=== PATIENT | female | born 1950 | race Caucasian/White ===

== ENCOUNTER 2019-01-14 15:13 | Inpatient (IN) | payer OTHER, MEDICAID ==
[~2019-01-14] VITALS: Ht 162.6 cm; Wt 66.7 kg
[2019-01-14 12:00] VITALS: BP 144/76
[~2019-01-14 15:13] MED LIST: ANASPAZ0.125 MG; BENTYL 20 MG TA20 M1; BENTYL 20 MG TA20 M1 PO; EFFEXOR XR75 MG PO; FLEXERIL; OXCARBAZEPINE300 M1; PHENERGAN25 MG RE; RISPERDAL0.5 MG; ROBAXIN 750 MG750 M1; ROBAXIN 750 MG750 M1 PO; TOPROL XL50 MG PO; ZANTAC 150MG T150 M1
[2019-01-14 15:28] VITALS: BP 157/84
[2019-01-14] MEDS ORDERED: CRESTOR40 MG PO (15:44)
[2019-01-14] MEDS ORDERED: SERTRALINE HCL50 MG PO (15:45)
[2019-01-14] MEDS ORDERED: EFFEXOR XR75 MG PO (15:45)
[2019-01-14] MEDS ORDERED: HYDROCHLOROTH12.5 M1 PO (15:46)
[2019-01-14] MEDS ORDERED: MOBIC15 MG PO (15:46)
[2019-01-14] MEDS ORDERED: BENTYL 20 MG TA20 M1 PO (15:46)
[2019-01-14] MEDS ORDERED: TOPROL XL25 MG PO (15:46)
[2019-01-14] MEDS ORDERED: OXCARBAZEPINE300 MG PO (15:47)
[2019-01-14] MEDS ORDERED: OMEPRAZOLE 20 M20 M1 PO (15:47)
[2019-01-14] MEDS ORDERED: CHILDREN'S ASPI81 M1 PO (15:48)
[2019-01-14] MEDS ORDERED: CLONAZEPAM 0.50.5 M1 PO (15:48)
[2019-01-14 16:54] LABS: ABSOLUTE EOSINOPHILS 0.1 thou/uL (0.0-0.7); ABSOLUTE LYMPHOCYTES 1.1 thou/uL (0.8-5.3); ABSOLUTE MONOCYTES 0.6 thou/uL (0.0-1.2); ABSOLUTE NEUTROPHILS 3.4 thou/uL (1.6-8.1); BASOPHILS 0.6 %; EOSINOPHILS 2.3 %; HEMATOCRIT 37.3 % (37.0-47.0); HEMOGLOBIN 13.2 gm/dL (12.0-15.0); LYMPHOCYTES 21.4 %; MCH 34.6 pg (26.0-34.0); MCHC 35.3 g/dL (28.0-37.0); MCV 98.2 fL (80.0-100.0); MPV 8.4 fl. (7.2-11.1); NUCLEATED RBCS 0 /100WBC; PLATELET COUNT* 173 thou/uL (150-400); POLYS 63.7 %; RDW-CV 13.5 % (10.5-14.5); WBC 5.3 thou/uL (4.0-11.0)
[2019-01-14 17:05] LABS: ANION GAP 15 mmol/L (7-16); BUN 27 mg/dL (7-18); CALCIUM 9.7 mg/dL (8.5-10.1); CHLORIDE 100 mmol/L (98-107); CO2 23 mmol/L (21-32); CREATININE 0.9 mg/dL (0.6-1.3); GLUCOSE 103 mg/dL (70-99); POTASSIUM 3.3 mmol/L (3.5-5.1); SODIUM 138 mmol/L (136-145)
[2019-01-14 17:14] LABS: ALBUMIN 4.1 g/dL (3.4-5.0); ALKALINE PHOSPHATASE 146 U/L (46-116); SGOT 42 U/L (15-37); SGPT 53 U/L (30-65); TOTAL BILIRUBIN 0.3 mg/dL (<0.1-1.0); TOTAL PROTEIN 7.5 g/dL (6.4-8.2); TROPONIN-I LEVEL <0.06 ng/mL (<0.06)
[2019-01-14 17:17] LABS: APTT 26.6 Seconds (25.0-31.3); INR 1.1
--- NOTE | 2019-01-14 17:36 | NUR ---
ORTHO DOCTOR AT BEDSIDE TALKING WITH PT.
--- NOTE | 2019-01-14 18:57 | NUR ---
REPORT GIVEN TO JUAN MANUEL ACEVEDO. JUAN MANUEL ACEVEDO TO ASSUME PT CARE AT THIS TIME.
[2019-01-14 19:40] VITALS: BP 159/73
[2019-01-14 20:00] VITALS: BP 144/85
[2019-01-15 00:54] VITALS: BP 134/85
[2019-01-15 04:00] VITALS: BP 156/75
[2019-01-15 05:08] LABS: ABSOLUTE EOSINOPHILS 0.1 thou/uL (0.0-0.7); ABSOLUTE LYMPHOCYTES 1.4 thou/uL (0.8-5.3); ABSOLUTE MONOCYTES 0.5 thou/uL (0.0-1.2); ABSOLUTE NEUTROPHILS 2.4 thou/uL (1.6-8.1); BASOPHILS 0.7 %; EOSINOPHILS 2.2 %; HEMATOCRIT 37.2 % (37.0-47.0); HEMOGLOBIN 12.8 gm/dL (12.0-15.0); LYMPHOCYTES 32.6 %; MCH 34.9 pg (26.0-34.0); MCHC 34.5 g/dL (28.0-37.0); MCV 101.2 fL (80.0-100.0); MONOCYTES 10.2 %; MPV 8.8 fl. (7.2-11.1); NUCLEATED RBCS 0 /100WBC; PLATELET COUNT* 150 thou/uL (150-400); POLYS 54.3 %; RBC 3.67 mil/uL (4.20-5.00); RDW-CV 13.9 % (10.5-14.5); WBC 4.4 thou/uL (4.0-11.0)
--- NOTE | 2019-01-15 05:11 | NUR ---
RECEIVED REPORT FROM RAAD ZAMBRANO. PT TRANSFERRED TO 224. PT A&OX4. VSS. CYBER TRANSPORT SYSTEMS SPECIALIST IN PLACE. ADMISSION HISTORY & PHYSICAL ASSESSMENT COMPLETED AND CHARTED. PT ON RA. PT TRACING SR ON TELE. PT UPSTANDBY TO RESTROOM. PT COMPLAINED OF LEFT UPPER ARM PAIN-MEDS GIVEN PER MAR. PT WITH BRUISE/HEMATOMA ON LEFT UPPER ARM-PHOTOGRAPH TAKEN, COMPRESSION WRAP & ICE APPLIED. PT ABLE TO SLEEP WELL ON BED. FALL PRECAUTIONS IN PLACE. CALL LIGHT WITHIN REACH.
[2019-01-15 05:25] LABS: ANION GAP 12 mmol/L (7-16); BUN 24 mg/dL (7-18); CALCIUM 9.1 mg/dL (8.5-10.1); CHLORIDE 100 mmol/L (98-107); CHOLESTEROL 180 mg/dL (<200); CO2 23 mmol/L (21-32); CREATININE 0.8 mg/dL (0.6-1.3); GLUCOSE 116 mg/dL (70-99); HDL CHOLESTEROL 74 mg/dL (>40); LDL CHOLESTEROL 64 mg/dL (<100); PHOSPHORUS* 3.8 mg/dL (2.5-4.9); POTASSIUM 3.9 mmol/L (3.5-5.1); SODIUM 135 mmol/L (136-145); TC:HDL 2.4 Ratio (Not establshd); TRIGLYCERIDE 210 mg/dL (<150); VLDL 42 mg/dL (<40)
[2019-01-15 05:40] LABS: SERUM ASSESSMENT CLEAR
[2019-01-15 08:00] VITALS: BP 131/105
--- NOTE | 2019-01-15 12:33 | CON ---
[address] [address] CONSULTATION Name: OMARIENIO Felton Room: [address] IN ..#: [id number] Admission: 01/14/19 Attend Phys: Amy Salas MD Discharge: Date of : 48 Report #: [id number] THIS REPORT FOR: //name// CC: ROSELINE Salas DATE OF SERVICE: 01/15/2019 CARDIOLOGY CONSULTATION HISTORY OF PRESENT ILLNESS: The patient is a 68-year-old single white female who I was asked to see in the hospital after a fall. The patient has an extensive past medical history. Unfortunately, none of her old records are here at [facility]. She apparently had a fall years ago on the ice and suffered a traumatic brain injury. She has a history of hypertension, recently was noted to have episodes of her heart would pound. She has had occasional fall. She was referred to a fire coordinator recently. She apparently wore a heart monitor for a couple of weeks. She was told that she needed a stress test, which she has not had yet. She also recently was seen by neurologist. She is not sure what kind of evaluation. She apparently fell 2 days ago and injured her left arm. She apparently lost her balance. Her friend brought her to the Emergency Room yesterday and she was admitted. She had no seizure activity. Denied any vomiting. She has had loose stools. PAST MEDICAL HISTORY: She has had previous cholecystectomy, hernia repair. She has apparently had evidence of previous stroke. MEDICATIONS: On admission included Crestor, Zoloft, hydrochlorothiazide, Mobic, omeprazole, aspirin, clonazepam, Effexor, metoprolol. ALLERGIES: She has no known drug allergies. FAMILY HISTORY: Negative for heart disease. SOCIAL HISTORY: She has been twice, currently lives by herself in [place], [place]. She has not worked at this time. No smoking. Rarely drinks alcohol. REVIEW OF SYSTEMS: She was told in the past she has had evidence of multiple strokes. She was told that at [facility]. She has no history of asthma, liver disease, kidney disease. She did see a psychiatrist in the past for depression. No chronic skin condition. PHYSICAL EXAMINATION: GENERAL: Revealed an elderly female lying in bed. [place] [address] CONSULTATION Name: ENIO SALCIDO Room: [address]#: [id number] Admission: 01/14/19 Attend Phys: Amy Salas MD Discharge: Date of : 48 Report #: [id number] VITAL SIGNS: She had a blood pressure of 130/70, pulse is 90. She is afebrile. HEENT: She was anicteric. Conjunctivae are pink. Mucous membranes moist. NECK: Veins do not appear distended. No carotid bruits. Neck supple. CHEST: Clear to auscultation. CARDIOVASCULAR: Regular rate and rhythm, grade 3 systolic ejection murmur. ABDOMEN: Soft. EXTREMITIES: Had no edema. Dorsalis pedis pulse 2+ bilaterally. SKIN: Warm, dry. NEUROLOGIC: Nonfocal. LYMPH: No adenopathy. MUSCULOSKELETAL: No joint effusion. RADIOLOGICAL DATA: Her ECG showed a sinus rhythm with poor R-wave progression. Workup in the Emergency Room yesterday, she had a portable chest x-ray that showed normal heart size, clear lung mcgarry. LABORATORY WORK: Sodium 135, creatinine 0.8, glucose 116. Liver function studies were normal. Troponin 0.06. Cholesterol 180, triglycerides 210, HDL 74, LDL 64. TSH 5.2. White blood cell count 4.4, hemoglobin 12.8. IMPRESSION AND RECOMMENDATIONS: 1. Recurrent falls. Reason unclear. 2. Hypertension. The patient has been on a beta ciro. 3. History of a previous stroke. The patient recently was seen by Neurology. 4. Abnormal ECG. The patient is scheduled for a stress test. I would recommend an echocardiogram. 5. History of depression. The patient saw a psychiatrist in the past. <ELECTRONICALLY SIGNED> By: Audie Liao MD, [facility] 01/15/19 1233 [id number] Liao MD, [facility] /nt
[2019-01-15 14:10] VITALS: BP 113/77
[2019-01-15 18:40] VITALS: BP 126/97
[2019-01-15 20:00] VITALS: BP 143/70
[2019-01-16 00:46] VITALS: BP 176/81
[2019-01-16 04:20] VITALS: BP 141/80
[2019-01-16 05:10] LABS: CALCIUM 9.4 mg/dL (8.5-10.1); CREATININE 0.9 mg/dL (0.6-1.3); POTASSIUM 3.6 mmol/L (3.5-5.1)
--- NOTE | 2019-01-16 05:59 | NUR ---
ASSUMED CARE OF PT AFTER REPORT AT 1930. PT A&OX4. VSS. PHYSICAL ASSESSMENT COMPLETED AND CHARTED. PT ON RA. PT TRACING SR ON TELE. PT UP STANDBY TO RESTROOM. PT COMPLAINED OF LEFT UPPER ARM PAIN-MEDS GIVEN PER MAR. MAINTAINED LEFT UPPER ARM ON COMPRESSION WRAP AND ICE APPLIED. FALL PRECAUTIONS IN PLACE. CALL LIGHT WITHIN REACH.
[2019-01-16 08:00] VITALS: BP 146/68
--- NOTE | 2019-01-16 10:32 | NUR ---
MET WITH PT TO DISCUSS HOME SITUATION/DC PLANNING. PT [place]ES [place], AND SOMETIMES WITH HER FRIEND JAYASHREE. 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 PT HAS HX OF STROKE AND TBI. SHE PLANS TO RETURN HOME AT DC. DENIES ANY DC NEEDS, STATES JAYASHREE WILL ASSIST HER NEEDED
[2019-01-16 11:32] VITALS: BP 148/83
[2019-01-16] MEDS ORDERED: DOK PLUS TABLE1 EACH PO (14:23)
[2019-01-16] MEDS ORDERED: OXYCODONE HCL 55 MG PO (14:23)
[2019-01-16] MEDS ORDERED: TOPROL XL50 MG PO (14:23)
--- NOTE | 2019-01-16 14:45 | 2DMMODE ---
[place] [address] 2 D/M-MODE ECHOCARDIOGRAM Name: ENIO SALCIDO Room: [address] IN .R.#: [id number] Admission: 01/14/19 Attend Phys: Amy Salas MD Discharge: Date of : 48 Date of Service: 01/16/19 1444 Report #: [id number] THIS REPORT FOR: //name// APPROVED REPORT Study performed: 01/16/2019 11:40:40 EXAM: Comprehensive 2D, Doppler, and color-flow Echocardiogram Patient Location: Bedside BSA: 1.72 HR: 96 bpm BP: 141/80 mmHg Other Information Study Quality: Fair Indications Abnormal ECG 2D Dimensions IVSd: 10.31 (7-11mm) LVOT Diam: 19.22 (18-24mm) LVDd: 34.15 mm PWd: 11.34 (7-11mm) Ascending Ao: 29.30 (22-36mm) LVDs: 25.62 (25-40mm) Aortic Root: 26.63 mm Volumes Left Atrial Volume (Systole) LA ESV Index: 12.20 mL/m2 Aortic Valve AoV Peak Oliver.: 3.82 m/s AO Peak Gr.: 58.42 mmHg LVOT Max P.59 mmHg AO Mean Gr.: 32.21 mmHg LVOT Mean P.48 mmHg LVOT Max V: 1.84 m/s AO V2 VTI: 62.62 cm LVOT Mean V: 1.17 m/s JOSUE (VTI): 1.73 cm2 LVOT V1 VTI: 37.25 cm Mitral Valve MV Mean Gr.: 3.52 mmHg E/A Ratio: 0.55 MV Decel. Time: 232.06 ms MV E Max Oliver.: 0.78 m/s MV PHT: 67.30 ms MVA (PHT): 3.27 [place]2 [place] [address] 2 D/M-MODE ECHOCARDIOGRAM Name: OMARI,ENIO Jose Francisco Room: [address] IN [facility]#: [id number] Admission: 01/14/19 Attend Phys: Amy Salas MD Discharge: Date of : 48 Date of Service: 01/16/19 1444 Report #: [id number] TDI E/Lateral E': 9.75 E/Medial E': 7.80 Medial E' Oliver.: 0.10 m/s Lateral E' Oliver.: 0.08 m/s Pulmonary Valve PV Peak Oliver.: 1.18 m/s PV Peak Gr.: 5.58 mmHg Tricuspid Valve RAP Estimate: 5.00 mmHg TR Peak Gr.: 21.42 mmHg RVSP: 26.42 mmHg PA Pressure: 26.42 mmHg Left Ventricle The left ventricle is normal size. There is normal LV segmental wall motion. mild-moderate left ventricular outflow tract gradient is present below the level of the aortic valve Left ventricular systolic function is normal. The left ventricular ejection fraction is within the normal range. LVEF is 65%. Grade I - abnormal relaxation pattern. Right Ventricle The right ventricle is normal size. The right ventricular systolic function is normal. Atria The left atrium size is normal. The right atrium size is normal. Aortic Valve Mild aortic valve sclerosis. No aortic regurgitation is present. No hemodynamically significant valvular aortic stenosis. Mitral Valve The mitral valve is normal in structure. Trace mitral regurgitation. No evidence of mitral valve stenosis. Tricuspid Valve The tricuspid valve is normal in structure. Trace tricuspid regurgitation. Pulmonic Valve The pulmonary valve is normal in structure. There is no pulmonic [place] [address] 2 D/M-MODE ECHOCARDIOGRAM Name: ENIO SALCIDO Room: [address]#: [id number] Admission: 01/14/19 Attend Phys: Amy Salas MD Discharge: Date of : 48 Date of Service: 01/16/19 1444 Report #: [id number] Great Vessels The aortic root is normal in size. IVC is normal in size and collapses >50% with inspiration. Pericardium There is no pericardial effusion. <Conclusion> The left ventricle is normal size. Left ventricular systolic function is normal. The left ventricular ejection fraction is within the normal range. LVEF is 65%. Grade I - abnormal relaxation pattern. The right ventricle is normal size. The left atrium size is normal. Mild aortic valve sclerosis. No aortic regurgitation is present. No hemodynamically significant valvular aortic stenosis. The mitral valve is normal in structure. Trace mitral regurgitation. The tricuspid valve is normal in structure. IVC is normal in size and collapses >50% with inspiration. There is no pericardial effusion. There is normal LV segmental wall motion. mild-moderate left ventricular outflow tract gradient is present below the level of the aortic valve <ELECTRONICALLY SIGNED> By: Jaret Villanueva MD, FACC 01/16/19 1444 1444 1444 Jaret Villanueva MD, FACC /INF
[2019-01-16 15:39] VITALS: BP 148/83
--- NOTE | 2019-01-16 16:32 | NUR ---
PT VVS UNTIL DISCHARGE, PT SINUS RHYTHM TO SINUS TACH ON TELE., HOURLY ROUNDING PERFORMED, PT BELONGINGS AND CALL LIGHT WITHIN REACH. PT REPORTED PAIN BUT DID NOT WANT TO TAKE IV MORPHINE OR NORCO. PT WAS ANXIOUS AND READY TO BE DISCHARGED. DISCHARGE AND DC EDUCATION COMPLETED, IV DISCONTINUED WITHOUT COMPLICATION, TELE MONITOR REMOVED. PAPER SCRIPTS AND CARENOTES GIVEN TO PT. PATIENT WALKED TO THE FRONT DOOR AND WAS PICKED UP BY FRIEND IN AUTO.
== END 2019-01-16 16:05 | disposition home or self-care (01) | DRG 918 ==
LOC: M.ERS 15:13 → M.2W 18:13 → M.TBA-ER 18:13 → M.2W 20:00
PROVIDERS: Emergency Medicine Emergency Medical Services; ADMIT Family Medicine
DX: T44.7X1A Poisoning by beta-adrenoreceptor antagonists, accidental (unintentional), initial encounter (principal); E87.1 Hypo-osmolality and hyponatremia; S40.021A Contusion of right upper arm, initial encounter; F43.10 Post-traumatic stress disorder, unspecified; R55 Syncope and collapse; F32.9 Major depressive disorder, single episode, unspecified; E87.6 Hypokalemia; W18.39XA Other fall on same level, initial encounter; I10 Essential (primary) hypertension; Z90.49 Acquired absence of other specified parts of digestive tract; Z86.73 Personal history of transient ischemic attack (TIA), and cerebral infarction without residual deficits; Y93.89 Activity, other specified; Y92.89 Other specified places as the place of occurrence of the external cause; Y99.8 Other external cause status

== ENCOUNTER 2019-04-30 12:06 | Inpatient (IN) | payer OTHER, MEDICAID ==
[~2019-04-30] VITALS: Ht 162.6 cm; Wt 69.9 kg
[~2019-04-30 12:06] MED LIST changes: +CHILDREN'S ASPI81 M1 PO; +CLONAZEPAM 0.50.5 M1 PO; +CRESTOR40 MG PO; +DOK PLUS TABLE1 EACH PO; +HYDROCHLOROTH12.5 M1 PO; +MOBIC15 MG PO; +OMEPRAZOLE 20 M20 M1 PO; +OXCARBAZEPINE300 MG PO; +OXYCODONE HCL 55 MG PO; +SERTRALINE HCL50 MG PO; +TOPROL XL25 MG PO
[2019-04-30 12:19] VITALS: BP 149/90
[2019-04-30] MEDS ORDERED: TOPROL XL25 MG PO (12:26)
[2019-04-30 12:41] LABS: URINE BLOOD NEGATIVE (Negative); URINE CLARITY CLEAR; URINE COLOR DARK YELLOW; URINE GLUCOSE-RANDOM NEGATIVE (Negative); URINE KETONES TRACE (Negative); URINE LEUKOCYTES NEGATIVE (Negative); URINE NITRITE NEGATIVE (Negative); URINE PROTEIN NEGATIVE (Negative); URINE SPECIFIC GRAVITY >= 1.030 (1.005-1.030); URINE UROBILINOGEN 0.2 E.U./dl (0.2-1.0)
[2019-04-30 12:43] LABS: ICTOTEST (BILI CONFIRMATORY) Negative (Negative); URINE BILIRUBIN 2+ (Negative)
[2019-04-30 13:03] LABS: INFLUENZA A ANTIGEN Negative (Negative); INFLUENZA B ANTIGEN Negative (Negative)
[2019-04-30 13:18] LABS: ABSOLUTE LYMPHOCYTES 0.8 thou/uL (0.8-5.3); ABSOLUTE MONOCYTES 0.6 thou/uL (0.0-1.2); ABSOLUTE NEUTROPHILS 4.5 thou/uL (1.6-8.1); BASOPHILS 0.4 %; EOSINOPHILS 0.7 %; HEMATOCRIT 41.8 % (37.0-47.0); LYMPHOCYTES 13.4 %; MCV 91.6 fL (80.0-100.0); MONOCYTES 10.8 %; MPV 8.6 fl. (7.2-11.1); NUCLEATED RBCS 0 /100WBC; PLATELET COUNT* 170 thou/uL (150-400); POLYS 74.7 %; RBC 4.56 mil/uL (4.20-5.00); RDW-CV 13.8 % (10.5-14.5)
[2019-04-30 13:31] LABS: CREATININE 1.2 mg/dL (0.6-1.3); POTASSIUM 3.7 mmol/L (3.5-5.1)
[2019-04-30 13:36] LABS: ALBUMIN 4.3 g/dL (3.4-5.0); TOTAL BILIRUBIN 0.7 mg/dL (<0.1-1.0); TOTAL PROTEIN 8.1 g/dL (6.4-8.2)
[2019-04-30 15:34] VITALS: BP 140/79
[2019-04-30 17:41] VITALS: BP 107/79
[2019-04-30 19:35] VITALS: BP 142/86
--- NOTE | 2019-04-30 20:16 | NUR ---
ASSUMED PT CARE AT AROUND 1600. ASSESSMENT COMPLETED CHARTED. MED REC COMPLETED, RESTING IN BED, C/O PAIN IN ABD AND DR GAVE ORDERS. GAVE PRN MEDICATION PER EMAR. FAMILY AND DOG CAME TO VISIT PT LATE IN SHIFT. IV FLUIDS RUNNING PER EMAR. WILL CONTINUE TO MONITOR.
[2019-05-01] VITALS: BP 132/78
--- NOTE | 2019-05-01 03:16 | NUR ---
ASSUMED CARE OF PT AT 1900. PT IS ALERT AND ORIENTED. VSS. PERRLA. PT IS GETTING FENTANYL FOR PAIN. PT IS IN SINUS RYTHM ON THE TELEMETRY. PT IS RESTING COMFORTABLY IN BED. RESPIRATIONS ARE EVEN AND NONLABORED. WILL CONTINUE TO MONITOR PT.
[2019-05-01 04:00] VITALS: BP 102/72
[2019-05-01 04:49] LABS: ABSOLUTE EOSINOPHILS 0.1 thou/uL (0.0-0.7); ABSOLUTE MONOCYTES 0.5 thou/uL (0.0-1.2); ABSOLUTE NEUTROPHILS 2.7 thou/uL (1.6-8.1); BASOPHILS 0.7 %; EOSINOPHILS 1.8 %; HEMATOCRIT 37.8 % (37.0-47.0); HEMOGLOBIN 13.6 gm/dL (12.0-15.0); LYMPHOCYTES 22.5 %; MCH 33.1 pg (26.0-34.0); MCHC 36.1 g/dL (28.0-37.0); MCV 91.8 fL (80.0-100.0); MONOCYTES 12.1 %; MPV 8.2 fl. (7.2-11.1); NUCLEATED RBCS 0 /100WBC; PLATELET COUNT* 146 thou/uL (150-400); POLYS 62.9 %; RBC 4.11 mil/uL (4.20-5.00); RDW-CV 14.4 % (10.5-14.5); WBC 4.3 thou/uL (4.0-11.0)
[2019-05-01 05:29] LABS: CALCIUM 8.5 mg/dL (8.5-10.1); CREATININE 0.9 mg/dL (0.6-1.3); POTASSIUM 3.2 mmol/L (3.5-5.1)
[2019-05-01 08:00] VITALS: BP 124/76
--- NOTE | 2019-05-01 10:00 | EKG ---
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1950 Requested By: Cris Lopez Order Number: [id number] MD: Audie Liao Measurements Intervals [place] Rate: 101 P: 40 OH: 158 QRS: -2 QRSD: 94 T: 38 QT: 378 QTc: 490 Interpretive Statements Sinus tachycardia Left ventricular hypertrophy Anterior infarct, old Minimal ST elevation, inferior leads Compared to ECG 09/12/2010 11:33:11 Left ventricular hypertrophy now present Myocardial infarct finding now present ST (T wave) deviation now present Sinus rhythm no longer present Electronically Signed On 05-01-2019 10:00:14 [employer]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
[2019-05-01 12:00] VITALS: BP 133/71
--- NOTE | 2019-05-01 14:53 | 2DMMODE ---
[place] [address] 2 D/M-MODE ECHOCARDIOGRAM Name: ENIO SALCIDO Room: [address] IN [facility]#: [id number] Admission: 04/30/19 Attend Phys: Kavon Guardado, Discharge: Date of : 48 Date of Service: 05/01/19 1452 Report #: [id number] THIS REPORT FOR: //name// APPROVED REPORT Study performed: 05/01/2019 11:11:54 EXAM: Comprehensive 2D, Doppler, and color-flow Echocardiogram Patient Location: In-Patient Room #: [facility] Status: routine BSA: 1.75 HR: 76 bpm BP: 102/72 mmHg Rhythm: NSR Other Information Study Quality: Good Indications Murmur 2D Dimensions IVSd: 13.98 (7-11mm) LVOT Diam: 19.33 (18-24mm) LVDd: 31.58 mm PWd: 11.39 (7-11mm) Ascending Ao: 32.49 (22-36mm) LVDs: 18.97 (25-40mm) Aortic Root: 29.22 mm Volumes Left Atrial Volume (Systole) LA ESV Index: 20.70 mL/m2 Aortic Valve AoV Peak Oliver.: 1.57 m/s AO Peak Gr.: 9.87 mmHg LVOT Max P.39 mmHg AO Mean Gr.: 6.43 mmHg LVOT Mean P.68 mmHg LVOT Max V: 1.76 m/s AO V2 VTI: 33.06 cm LVOT Mean V: 1.20 m/s JOSUE (VTI): 3.41 cm2 LVOT V1 VTI: 38.45 cm Mitral Valve E/A Ratio: 0.64 MV Decel. Time: 232.54 ms MV E Max Oliver.: 1.31 m/[place] [address] 2 D/M-MODE ECHOCARDIOGRAM Name: ENIO SALCIDO Jose Francisco Room: [address] IN .#: [id number] Admission: 04/30/19 Attend Phys: Kavon Guardado, Discharge: Date of : 48 Date of Service: 05/01/19 1452 Report #: [id number] MV PHT: 67.44 ms MVA (PHT): 3.26 cm2 TDI E/Lateral E': 21.83 E/Medial E': 18.71 Medial E' Oliver.: 0.07 m/s Lateral E' Oliver.: 0.06 m/s Pulmonary Valve PV Peak Oliver.: 0.77 m/s PV Peak Gr.: 2.39 mmHg Left Ventricle The left ventricle is normal size. There is normal LV segmental wall motion. Mild concentric left ventricular hypertrophy. Left ventricular systolic function is normal. The left ventricular ejection fraction is within the normal range. LVEF is 60-65%. Grade I - abnormal relaxation pattern. Right Ventricle The right ventricle is normal size. The right ventricular systolic function is normal. Atria The left atrium size is normal. The right atrium size is normal. Aortic Valve The aortic valve is normal in structure. Trace aortic regurgitation. There is no aortic valvular stenosis. Mitral Valve The mitral valve is normal in structure. Mild mitral regurgitation. No evidence of mitral valve stenosis. Tricuspid Valve The tricuspid valve is normal in structure. Trace tricuspid regurgitation. Pulmonic Valve The pulmonary valve is normal in structure. There is no pulmonic valvular regurgitation. Great Vessels The aortic root is normal in size. IVC is normal in size and collapses >50% [place] [address] 2 D/M-MODE ECHOCARDIOGRAM Name: ENIO SALCIDO Room: [address] IN [facility]#: [id number] Admission: 04/30/19 Attend Phys: Kavon Guardado, Discharge: Date of : 48 Date of Service: 05/01/19 1452 Report #: [id number] Pericardium There is no pericardial effusion. <Conclusion> Mild concentric left ventricular hypertrophy. LVEF is 60-65%. Mild mitral regurgitation. <ELECTRONICALLY SIGNED> By: Audie Liao MD, [facility] 05/01/19 1452 [id number] Audie Liao MD, [facility] /INF
--- NOTE | 2019-05-01 15:48 | NUR ---
Pt is A&O. Resides at home alone. No DME. Pt states that she is current with [facility], Pt plans to dc to her friends house [address] [place] [address], HH will need to see Pt there. No hx of SNF. Spoke with , anticipate dc in 1-2 days. Following.
[2019-05-01 16:00] VITALS: BP 124/75
[2019-05-01 20:00] VITALS: BP 124/71
[2019-05-02] VITALS: BP 137/76
[2019-05-02 04:00] VITALS: BP 109/58; BP 139/85
[2019-05-02 04:58] LABS: ABSOLUTE EOSINOPHILS 0.1 thou/uL (0.0-0.7); ABSOLUTE LYMPHOCYTES 0.8 thou/uL (0.8-5.3); ABSOLUTE MONOCYTES 0.3 thou/uL (0.0-1.2); ABSOLUTE NEUTROPHILS 2.1 thou/uL (1.6-8.1); BASOPHILS 0.6 %; EOSINOPHILS 3.7 %; HEMATOCRIT 33.6 % (37.0-47.0); HEMOGLOBIN 12.1 gm/dL (12.0-15.0); LYMPHOCYTES 23.9 %; MCH 33.6 pg (26.0-34.0); MCHC 36.1 g/dL (28.0-37.0); MCV 93.2 fL (80.0-100.0); MONOCYTES 9.9 %; MPV 8.5 fl. (7.2-11.1); NUCLEATED RBCS 0 /100WBC; PLATELET COUNT* 132 thou/uL (150-400); POLYS 61.9 %; RDW-CV 14.1 % (10.5-14.5); WBC 3.4 thou/uL (4.0-11.0)
[2019-05-02 05:29] LABS: ALBUMIN 3.4 g/dL (3.4-5.0); CALCIUM 8.2 mg/dL (8.5-10.1); CREATININE 0.7 mg/dL (0.6-1.3); POTASSIUM 3.6 mmol/L (3.5-5.1); TOTAL BILIRUBIN 0.2 mg/dL (<0.1-1.0); TOTAL PROTEIN 6.5 g/dL (6.4-8.2)
[2019-05-02 07:30] VITALS: BP 127/73
--- NOTE | 2019-05-02 08:06 | NUR ---
ASSUMED PATIENT CARE AT 1900. ASSESSMENT COMPLETED CHARTED. PATIENT IS NSR ON THE MONITOR. HOURLY ROUNDING IN PLACE FOR PATIENT SAFETY. CLWR.
[2019-05-02 12:14] VITALS: BP 127/73
[2019-05-02 12:23] VITALS: BP 136/80
--- NOTE | 2019-05-02 13:47 | NUR ---
RECEIVED DC ORDERS PER DR PRADO. EDUCATED PATIENT ON F/U APPT AND HOME MEDICATIONS. IV DISCONTINUED. REHAB CONSULTANT REMOVED AND RETURNED TO NURSE'S DESK. ALL BELONGINGS PACKED AND LEAVING WITH THE PATIENT. LEAVING VIA AMBULATORY PER PATIENTS REQUEST ACCOMPANIED BY NURSING STAFF AND HER FRIEND FOR TRANSPORTATION. NO QUESTIONS OR CONCERNS AT TIME OF DISCHARGE.
== END 2019-05-02 13:49 | disposition home health service (06) | DRG 641 ==
LOC: M.ERS 12:06 → M.2W 13:41 → M.TBA-ER 13:41 → M.2W 15:41
PROVIDERS: Family Medicine; Physician Assistant; ADMIT Internal Medicine
DX: E87.1 Hypo-osmolality and hyponatremia (principal); K50.90 Crohn's disease, unspecified, without complications; I10 Essential (primary) hypertension; F32.9 Major depressive disorder, single episode, unspecified; E86.0 Dehydration; R74.0 Nonspecific elevation of levels of transaminase and lactic acid dehydrogenase [LDH]; K52.9 Noninfective gastroenteritis and colitis, unspecified; F43.10 Post-traumatic stress disorder, unspecified; Z87.820 Personal history of traumatic brain injury; Z79.899 Other long term (current) drug therapy; Z79.82 Long term (current) use of aspirin; Z72.89 Other problems related to lifestyle